=== PATIENT | female | born 1990 | race African-American/Black ===

== ENCOUNTER 2018-05-19 00:49 | Emergency (ER) | payer OTHER ==
[~2018-05-19] VITALS: Ht 162.6 cm; Wt 54.4 kg
[~2018-05-19 00:49] MED LIST: TRAMADOL 50 MG50 MG PO
[2018-05-19 03:17] LABS: BASOPHILS 0.3 % (0.0-2.0); EOSINOPHILS 2.3 % (0.0-3.0); HEMATOCRIT 43.8 % (37.0-47.0); HEMOGLOBIN 14.5 gm/dL (12.0-15.0); LYMPHOCYTES 8.2 % (24.0-44.0); MCH 28.3 pg (26.0-34.0); MCHC 33.2 g/dL (28.0-37.0); MCV 85.4 fL (80.0-100.0); MONOCYTES 8.1 % (1.0-8.0); PLATELET COUNT 281 thou/uL (150-400); POLYS 81.1 % (36.0-66.0); RBC 5.13 mil/uL (4.20-5.00); RDW 13.7 % (10.5-14.5); WBC 14.8 thou/uL (4.0-11.0)
[2018-05-19 03:24] LABS: CALCIUM 9.6 mg/dL (8.5-10.1); POTASSIUM 4.2 mmol/L (3.5-5.1)
[2018-05-19 03:30] LABS: ALBUMIN 3.6 g/dL (3.4-5.0); TOTAL BILIRUBIN 0.6 mg/dL (<0.1-1.0); TOTAL PROTEIN 8.1 g/dL (6.4-8.2)
[2018-05-19 04:08] LABS: URINE CLARITY SL CLOUDY; URINE COLOR ORANGE
[2018-05-19 04:28] LABS: ICTOTEST (BILI CONFIRMATORY) Negative (Negative); URINE REDUCING SUBSTANCE NEGATIVE
[2018-05-19 04:29] LABS: CASTS None Seen /LPF (None Seen); CRYSTALS None Seen /LPF (None Seen); MUCUS None Seen strn/LPF (None Seen); SQUAMOUS None Seen /LPF (0-3); URINE WBC >25 Many /HPF (0-5)
[2018-05-19] MEDS ORDERED: KEFLEX500 M1 PO (07:02)
[2018-05-19 07:13] VITALS: BP 108/66
== END 2018-05-19 07:14 | disposition home or self-care (01) ==
LOC: ER 00:49
PROVIDERS: Emergency Medicine
DX: N39.0 Urinary tract infection, site not specified (principal)

== ENCOUNTER 2019-01-21 19:00 | Emergency (ER) | payer OTHER ==
[~2019-01-21] VITALS: Ht 162.6 cm; Wt 56.7 kg
[~2019-01-21 19:00] MED LIST changes: +KEFLEX500 M1 PO
[2019-01-21 19:12] VITALS: BP 118/49
== END 2019-01-21 20:00 | disposition home or self-care (01) ==
LOC: ER 19:00
DX: R60.0 Localized edema (principal)